=== PATIENT | female | born 1965 | race Caucasian/White ===

== ENCOUNTER → 2025-02-01 | Outpatient (CLI) | payer BC ==
--- NOTE | 2025-02-01 14:07 | XR ---
EXAMINATION TYPE: XR foot complete bilateral DATE OF EXAM: 02/01/2025 1:45 PM COMPARISON: None. CLINICAL INDICATION: Female, 59 years old with history of PAIN IN LEFT ANKLE AND JOINTS OF LEFT FOOT [id number], pain TECHNIQUE: 3 view(s) obtained bilateral feet. FINDINGS: Right foot: There is narrowing of the first metatarsophalangeal joint space. Hallux valgus deformity is present with some prominence of the soft tissue medially. Remaining osseous structures have normal alignment. Joint spaces otherwise are preserved. Plantar blanco caneal heel spur is present. Radiopaque foreign bodies or calcifications may be within the plantar so ft tissues. Left foot: Hallux valgus deformity is present. There is some mild subluxation of the proximal phalanx and distal first metatarsal. There is some narrowing of the first metatarsophalangeal joint space. N o acute fractures or dislocations evident. Plantar calcaneal heel spur is present. Hammertoes are present. Soft tissues appear normal IMPRESSION: 1. Bilateral Hallux valgus deformity, greater on the right. 2. Bilateral Plantar calcaneal heel spurs. 3. No suspicious acute changes. 4. Radiopaque foreign bodies versus calcification within the plantar aspect of the right foot. 5. Left foot hammertoes [facility], , 02/01/2025 2:04 PM
== END | disposition home or self-care (01) ==
LOC: RADXRMAIN 13:27
PROVIDERS: ATTEND Podiatrist Primary Podiatric Medicine
DX: M20.11 Hallux valgus (acquired), right foot (principal); M20.12 Hallux valgus (acquired), left foot; M20.41 Other hammer toe(s) (acquired), right foot; M20.42 Other hammer toe(s) (acquired), left foot; M19.072 Primary osteoarthritis, left ankle and foot; M77.31 Calcaneal spur, right foot; M77.32 Calcaneal spur, left foot